=== PATIENT | female | born 1955 | race Caucasian/White ===

== ENCOUNTER 2021-05-31 02:08 | Inpatient (IN) ==
[2021-05-31] MEDS ORDERED: Ipratropium/Albuterol Neb 3 ML IH ONE (02:13)
[2021-05-31] MEDS ORDERED: methylPREDNISolone 125 MG/2 ML VIAL IVP ONE (02:13)
[2021-05-31] MEDS ORDERED: 0.9 % Sodium Chloride 1,000 ML IVC SCH (02:15)
[2021-05-31 02:51] LABS: Basophils % 0.4 %; Eosinophils # 0.2 K/mcL (0.0-0.6); Hematocrit 43.4 % (35.3-44.9); Hemoglobin 13.9 g/dL (11.5-15.4); Immature Granulocytes % 0.5 % (0-4); Lymphocytes # 1.3 K/mcL (0.6-4.6); Lymphocytes % 12.5 %; Mean Corpuscular Hemoglobin 29.3 pg (28.0-33.3); Mean Corpuscular Volume 91.6 fL (83.0-100.0); Mean Platelet Volume 11.4 fL (9.4-12.4); Monocytes # 0.7 K/mcL (0.0-1.3); Monocytes % 6.3 %; Neutrophils # 8.4 K/mcL (1.6-8.9); Platelet Count 206 K/mcL (140-400); Red Blood Count 4.74 M/mcL (3.82-4.97); Red Cell Distribution Width 13.7 % (11.5-14.5); Segmented Neutrophils % 78.3 %; White Blood Count 10.8 K/mcL (4.3-11.1)
[2021-05-31 02:57] LABS: INR 1.1
[2021-05-31 03:00] LABS: Activated Partial Thrombo Time 30.3 Seconds (26.0-36.0)
[2021-05-31 03:07] LABS: Alanine Aminotransferase 41 Units/L (7-52); Albumin 4.2 g/dL (3.5-5.7); Albumin/Globulin Ratio 1.3 (1.1-2.2); Alkaline Phosphatase 92 Units/L (34-104); Aspartate Amino Transferase 46 Units/L (13-39); BUN/Creatinine Ratio 16 (6-26); Bilirubin,Total 0.4 mg/dL (0.3-1.0); Blood Urea Nitrogen 14 mg/dL (8-23); Calcium 9.2 mg/dL (8.6-10.3); Carbon Dioxide 29 mEq/L (23-29); Chloride 106 mEq/L (98-107); Globulin 3.3 g/dL (2.4-3.5); Glucose 146 mg/dL (70-105); Osmolality,Calculated 299 (280-300); Potassium 3.7 mEq/L (3.5-5.1); Sodium 143 mEq/L (136-145); Total Protein 7.5 g/dL (6.4-8.9); eGFR For African Americans > 60 (> 60); eGFR For Non-African Americans > 60 (> 60)
[2021-05-31 03:10] LABS: Bilirubin,Urine Negative (Negative); Blood,Urine Trace-intact (Negative); Clarity,Urine Clear (Clear); Color,Urine Yellow (Yellow); Glucose,Urine (UA) Normal (Normal); Ketones,Urine Negative (Negative); Leukocyte Esterase,Urine Negative (Negative); Nitrite,Urine Negative (Negative); PH,Urine 5.5 pH Units (5.0-8.0); Protein,Urine 100 mg/dL (Neg-Trace); Specific Gravity,Urine >= 1.030 (1.010-1.025); Urobilinogen,Urine Normal (Normal)
[2021-05-31 03:19] LABS: Hyaline Casts,Urine Few per lpf (None Seen); Mucus,Urine Few per lpf (None-Few); Squamous Epithelial Cell,Urine Few per hpf (None-Few); WBC,Urine 0-3 per hpf (0-3)
[2021-05-31 03:20] LABS: Bacteria,Urine Few per hpf (None-Few)
[2021-05-31] MEDS ORDERED: levoFLOXacin 500 MG/100 ML 500 MG/100 ML BAG IVPB ONE ×2 (03:26→04:07)
[2021-05-31] MEDS ORDERED: Ondansetron ODT 4 MG TAB.RAPDIS PO PRN (04:42)
[2021-05-31] MEDS: Ipratropium/Albuterol Neb 3 ML IH SCH ×4 (05:43→21:49)
[2021-05-31] MEDS: Ibuprofen 800 MG TABLET PO PRN ×3 (05:52→22:57)
[2021-05-31] MEDS: 0.9 % Sodium Chloride 1,000 ML IVC SCH ×2 (05:56→14:03)
[2021-05-31] MEDS ORDERED: modafiniL 100 MG TABLET PO SCH (09:00)
[2021-05-31] MEDS: MethylPREDNISolone 40 MG/ML VIAL IVP SCH ×3 (09:13→22:59)
[2021-05-31] MEDS: PARoxetine 10 MG TABLET PO SCH (09:13)
[2021-05-31] MEDS: Gabapentin 400 MG CAPSULE PO SCH ×3 (09:13→22:57)
[2021-05-31] MEDS: lisinopriL 20 MG TABLET PO SCH (09:14)
[2021-05-31] MEDS: hydroCHLOROthiazide 25 MG TABLET PO SCH (09:14)
[2021-05-31] MEDS: cilostazoL 100 MG TABLET PO SCH ×2 (09:14→22:58)
[2021-05-31] MEDS: Vitamin B Complex/Vit C/Vit E 1 EACH TABLET PO SCH (09:14)
[2021-05-31] MEDS: Cholecalciferol (D-3) 1,000 UNIT (25MCG) TABLET PO SCH (09:14)
[2021-05-31] MEDS: Metoprolol XL (24 HR) Succ 50 MG TAB.ER.24H PO SCH (09:14)
[2021-05-31] MEDS: amLODIPine 5 MG TABLET PO SCH (09:14)
[2021-05-31] MEDS: Budesonide/Formoterol 160/4.5 1 PUFF INH IH SCH (09:46)
[2021-05-31] MEDS: GuaiFENesin/Dextromethorphan TABLET PO PRN (14:56)
[2021-05-31] MEDS: Aspirin Enteric Coated 81 MG Tablet PO SCH (22:56)
[2021-05-31] MEDS: Melatonin 3 MG TABLET PO SCH (22:57)
[2021-06-01] MEDS: Ipratropium/Albuterol Neb 3 ML IH SCH ×4 (03:17→21:02)
[2021-06-01] MEDS: MethylPREDNISolone 40 MG/ML VIAL IVP SCH ×4 (04:10→22:17)
[2021-06-01] MEDS: hydroCHLOROthiazide 25 MG TABLET PO SCH (09:28)
[2021-06-01] MEDS: PARoxetine 10 MG TABLET PO SCH (09:29)
[2021-06-01] MEDS: amLODIPine 5 MG TABLET PO SCH (09:29)
[2021-06-01] MEDS: lisinopriL 20 MG TABLET PO SCH (09:29)
[2021-06-01] MEDS: Gabapentin 400 MG CAPSULE PO SCH ×3 (09:30→22:17)
[2021-06-01] MEDS: Metoprolol XL (24 HR) Succ 50 MG TAB.ER.24H PO SCH (09:30)
[2021-06-01] MEDS: Vitamin B Complex/Vit C/Vit E 1 EACH TABLET PO SCH (09:30)
[2021-06-01] MEDS: Cholecalciferol (D-3) 1,000 UNIT (25MCG) TABLET PO SCH (09:30)
[2021-06-01] MEDS: cilostazoL 100 MG TABLET PO SCH ×2 (09:30→22:17)
[2021-06-01] MEDS: Budesonide/Formoterol 160/4.5 1 PUFF INH IH SCH (09:42)
[2021-06-01 09:55] LABS: Hematocrit 44.5 % (35.3-44.9); Hemoglobin 13.8 g/dL (11.5-15.4); Mean Corpuscular Hemoglobin 28.8 pg (28.0-33.3); Mean Corpuscular Volume 92.9 fL (83.0-100.0); Mean Platelet Volume 10.8 fL (9.4-12.4); Platelet Count 211 K/mcL (140-400); Red Blood Count 4.79 M/mcL (3.82-4.97); Red Cell Distribution Width 13.6 % (11.5-14.5); White Blood Count 13.6 K/mcL (4.3-11.1)
[2021-06-01 10:10] LABS: BUN/Creatinine Ratio 25 (6-26); Blood Urea Nitrogen 24 mg/dL (8-23); Calcium 9.4 mg/dL (8.6-10.3); Carbon Dioxide 30 mEq/L (23-29); Chloride 106 mEq/L (98-107); Glucose 159 mg/dL (70-105); Osmolality,Calculated 303 (280-300); Potassium 4.3 mEq/L (3.5-5.1); Sodium 143 mEq/L (136-145); eGFR For African Americans > 60 (> 60); eGFR For Non-African Americans 58 (> 60)
[2021-06-01] MEDS: levoFLOXacin 500 MG/100 ML 500 MG/100 ML BAG IVPB SCH (10:30)
[2021-06-01] MEDS: Ibuprofen 800 MG TABLET PO PRN ×2 (10:30→15:44)
[2021-06-01] MEDS: *HR* Enoxaparin 40 MG/0.4 ML SYRINGE SQ SCH (12:00)
[2021-06-01] MEDS: Aspirin Enteric Coated 81 MG Tablet PO SCH (22:16)
[2021-06-01] MEDS: GuaiFENesin/Dextromethorphan TABLET PO PRN (22:17)
[2021-06-01] MEDS: Melatonin 3 MG TABLET PO SCH (22:17)
[2021-06-02] MEDS ORDERED: Saline Nasal Spray 44 ML BOTTLE NS PRN (03:03)
[2021-06-02] MEDS ORDERED: HYDROcodone BIT/Homatropine LQ 5 MG/5 ML UDC PO ONE (03:14)
[2021-06-02] MEDS: MethylPREDNISolone 40 MG/ML VIAL IVP SCH ×4 (03:32→20:38)
[2021-06-02] MEDS: Ibuprofen 800 MG TABLET PO PRN ×3 (03:33→16:39)
[2021-06-02] MEDS: Ipratropium/Albuterol Neb 3 ML IH SCH ×4 (04:29→22:19)
[2021-06-02] MEDS: *HR* Enoxaparin 40 MG/0.4 ML SYRINGE SQ SCH (05:52)
[2021-06-02 08:22] LABS: Hematocrit 38.1 % (35.3-44.9); Hemoglobin 11.9 g/dL (11.5-15.4); Mean Corpuscular HGB Conc 31.2 g/dL (31.6-35.5); Mean Corpuscular Hemoglobin 29.3 pg (28.0-33.3); Mean Corpuscular Volume 93.8 fL (83.0-100.0); Mean Platelet Volume 11.4 fL (9.4-12.4); Platelet Count 204 K/mcL (140-400); Red Blood Count 4.06 M/mcL (3.82-4.97); Red Cell Distribution Width 13.8 % (11.5-14.5); White Blood Count 12.5 K/mcL (4.3-11.1)
[2021-06-02] MEDS: Cholecalciferol (D-3) 1,000 UNIT (25MCG) TABLET PO SCH (08:27)
[2021-06-02] MEDS: lisinopriL 20 MG TABLET PO SCH (08:27)
[2021-06-02] MEDS: PARoxetine 10 MG TABLET PO SCH (08:27)
[2021-06-02] MEDS: Metoprolol XL (24 HR) Succ 50 MG TAB.ER.24H PO SCH (08:27)
[2021-06-02] MEDS: hydroCHLOROthiazide 25 MG TABLET PO SCH (08:27)
[2021-06-02] MEDS: Gabapentin 400 MG CAPSULE PO SCH ×3 (08:27→20:37)
[2021-06-02] MEDS: amLODIPine 5 MG TABLET PO SCH (08:28)
[2021-06-02] MEDS: Vitamin B Complex/Vit C/Vit E 1 EACH TABLET PO SCH (08:28)
[2021-06-02] MEDS: levoFLOXacin 500 MG/100 ML 500 MG/100 ML BAG IVPB SCH (08:28)
[2021-06-02] MEDS: cilostazoL 100 MG TABLET PO SCH ×2 (08:28→20:38)
[2021-06-02 08:41] LABS: BUN/Creatinine Ratio 31 (6-26); Blood Urea Nitrogen 33 mg/dL (8-23); Carbon Dioxide 31 mEq/L (23-29); Chloride 106 mEq/L (98-107); Glucose 156 mg/dL (70-105); Osmolality,Calculated 306 (280-300); Potassium 4.2 mEq/L (3.5-5.1); Sodium 143 mEq/L (136-145); eGFR For African Americans > 60 (> 60); eGFR For Non-African Americans 52 (> 60)
[2021-06-02] MEDS: GuaiFENesin/Dextromethorphan TABLET PO PRN (08:41)
[2021-06-02] MEDS: Budesonide/Formoterol 160/4.5 1 PUFF INH IH SCH (10:15)
[2021-06-02] MEDS: Melatonin 3 MG TABLET PO SCH (20:38)
[2021-06-02] MEDS: Aspirin Enteric Coated 81 MG Tablet PO SCH (20:38)
[2021-06-03] MEDS: Ipratropium/Albuterol Neb 3 ML IH SCH ×4 (03:35→22:50)
[2021-06-03] MEDS: MethylPREDNISolone 40 MG/ML VIAL IVP SCH ×4 (04:45→20:43)
[2021-06-03] MEDS: *HR* Enoxaparin 40 MG/0.4 ML SYRINGE SQ SCH (04:45)
[2021-06-03] MEDS: lisinopriL 20 MG TABLET PO SCH (08:04)
[2021-06-03] MEDS: Gabapentin 400 MG CAPSULE PO SCH ×3 (08:05→20:44)
[2021-06-03] MEDS: Vitamin B Complex/Vit C/Vit E 1 EACH TABLET PO SCH (08:05)
[2021-06-03] MEDS: hydroCHLOROthiazide 25 MG TABLET PO SCH (08:05)
[2021-06-03] MEDS: cilostazoL 100 MG TABLET PO SCH ×2 (08:05→20:50)
[2021-06-03] MEDS: Metoprolol XL (24 HR) Succ 50 MG TAB.ER.24H PO SCH (08:06)
[2021-06-03] MEDS: amLODIPine 5 MG TABLET PO SCH (08:06)
[2021-06-03] MEDS: PARoxetine 10 MG TABLET PO SCH (08:06)
[2021-06-03] MEDS: Cholecalciferol (D-3) 1,000 UNIT (25MCG) TABLET PO SCH (08:07)
[2021-06-03] MEDS: Budesonide/Formoterol 160/4.5 1 PUFF INH IH SCH ×2 (09:39→22:50)
[2021-06-03] MEDS ORDERED: Loratadine 10 MG TABLET PO PRN (13:40)
[2021-06-03] MEDS ORDERED: modafiniL 100 MG TABLET PO PRN (15:00)
[2021-06-03] MEDS: Benzonatate 100 MG CAPSULE PO PRN (15:16)
[2021-06-03] MEDS: Aspirin Enteric Coated 81 MG Tablet PO SCH (20:44)
[2021-06-03] MEDS: Melatonin 3 MG TABLET PO SCH (20:45)
[2021-06-04] MEDS: Ipratropium/Albuterol Neb 3 ML IH SCH ×3 (04:30→15:08)
[2021-06-04] MEDS: Benzonatate 100 MG CAPSULE PO PRN ×2 (05:00→17:02)
[2021-06-04] MEDS: MethylPREDNISolone 40 MG/ML VIAL IVP SCH ×4 (05:00→22:31)
[2021-06-04] MEDS: *HR* Enoxaparin 40 MG/0.4 ML SYRINGE SQ SCH (05:00)
[2021-06-04 07:28] LABS: Basophils % 0.2 %; Hematocrit 38.2 % (35.3-44.9); Hemoglobin 12.1 g/dL (11.5-15.4); Immature Granulocytes % 0.8 % (0-4); Lymphocytes # 1.1 K/mcL (0.6-4.6); Lymphocytes % 10.3 %; Mean Corpuscular HGB Conc 31.7 g/dL (31.6-35.5); Mean Corpuscular Hemoglobin 29.2 pg (28.0-33.3); Mean Corpuscular Volume 92.3 fL (83.0-100.0); Mean Platelet Volume 10.7 fL (9.4-12.4); Monocytes # 0.5 K/mcL (0.0-1.3); Monocytes % 4.2 %; Neutrophils # 9.3 K/mcL (1.6-8.9); Platelet Count 200 K/mcL (140-400); Red Blood Count 4.14 M/mcL (3.82-4.97); Red Cell Distribution Width 13.5 % (11.5-14.5); Segmented Neutrophils % 84.5 %; White Blood Count 11.1 K/mcL (4.3-11.1)
[2021-06-04 07:46] LABS: BUN/Creatinine Ratio 31 (6-26); Blood Urea Nitrogen 29 mg/dL (8-23); Calcium 8.7 mg/dL (8.6-10.3); Carbon Dioxide 39 mEq/L (23-29); Chloride 99 mEq/L (98-107); Glucose 159 mg/dL (70-105); Osmolality,Calculated 301 (280-300); Potassium 3.9 mEq/L (3.5-5.1); Sodium 141 mEq/L (136-145); eGFR For African Americans > 60 (> 60); eGFR For Non-African Americans 58 (> 60)
[2021-06-04] MEDS: Budesonide/Formoterol 160/4.5 1 PUFF INH IH SCH (09:32)
[2021-06-04] MEDS: Vitamin B Complex/Vit C/Vit E 1 EACH TABLET PO SCH (09:33)
[2021-06-04] MEDS: Gabapentin 400 MG CAPSULE PO SCH ×3 (09:33→22:31)
[2021-06-04] MEDS: lisinopriL 20 MG TABLET PO SCH (09:33)
[2021-06-04] MEDS: hydroCHLOROthiazide 25 MG TABLET PO SCH (09:34)
[2021-06-04] MEDS: Cholecalciferol (D-3) 1,000 UNIT (25MCG) TABLET PO SCH (09:34)
[2021-06-04] MEDS: amLODIPine 5 MG TABLET PO SCH (09:34)
[2021-06-04] MEDS: cilostazoL 100 MG TABLET PO SCH ×2 (09:34→22:31)
[2021-06-04] MEDS: Metoprolol XL (24 HR) Succ 50 MG TAB.ER.24H PO SCH (09:34)
[2021-06-04] MEDS: PARoxetine 10 MG TABLET PO SCH (09:34)
[2021-06-04 13:18] LABS: Adenovirus Not Detected (Not Detect); Bordetella Pertussis Not Detected (Not Detect); Chlamydophila pneumoniae Not Detected (Not Detect); Coronavirus 229E Not Detected (Not Detect); Coronavirus HKU1 Not Detected (Not Detect); Coronavirus NL63 Not Detected (Not Detect); Coronavirus OC43 Not Detected (Not Detect); Human Metapneumovirus Not Detected (Not Detect); Human Rhinovirus/Enterovirus Not Detected (Not Detect); Influenza A Subtype 2009 H1 Not Detected (Not Detect); Influenza B Not Detected (Not Detect); Mycoplasma pneumoniae Not Detected (Not Detect); Parainfluenza Virus 1 Not Detected (Not Detect); Parainfluenza Virus 2 Not Detected (Not Detect); Parainfluenza Virus 3 Not Detected (Not Detect); Parainfluenza Virus 4 Not Detected (Not Detect); Respiratory Syncytial Virus DETECTED (Not Detect); SARS-CoV-2 Not Detected (Not Detect)
[2021-06-04] MEDS: Melatonin 3 MG TABLET PO SCH (22:31)
[2021-06-04] MEDS: Aspirin Enteric Coated 81 MG Tablet PO SCH (22:31)
[2021-06-04] MEDS: Ibuprofen 800 MG TABLET PO PRN (22:39)
[2021-06-05] MEDS: Ipratropium/Albuterol Neb 3 ML IH SCH ×5 (01:23→22:12)
[2021-06-05] MEDS: Budesonide/Formoterol 160/4.5 1 PUFF INH IH SCH ×3 (01:23→22:12)
[2021-06-05] MEDS: *HR* Enoxaparin 40 MG/0.4 ML SYRINGE SQ SCH (06:22)
[2021-06-05] MEDS: MethylPREDNISolone 40 MG/ML VIAL IVP SCH ×4 (06:22→22:09)
[2021-06-05 08:05] LABS: Basophils % 0.2 %; Hematocrit 37.8 % (35.3-44.9); Hemoglobin 12.1 g/dL (11.5-15.4); Immature Granulocytes % 1.1 % (0-4); Lymphocytes # 1.1 K/mcL (0.6-4.6); Lymphocytes % 8.9 %; Mean Corpuscular Hemoglobin 29.4 pg (28.0-33.3); Mean Corpuscular Volume 91.7 fL (83.0-100.0); Mean Platelet Volume 10.8 fL (9.4-12.4); Monocytes # 0.5 K/mcL (0.0-1.3); Monocytes % 3.9 %; Neutrophils # 10.5 K/mcL (1.6-8.9); Platelet Count 212 K/mcL (140-400); Red Blood Count 4.12 M/mcL (3.82-4.97); Red Cell Distribution Width 13.3 % (11.5-14.5); Segmented Neutrophils % 85.9 %; White Blood Count 12.2 K/mcL (4.3-11.1)
[2021-06-05 08:31] LABS: BUN/Creatinine Ratio 37 (6-26); Blood Urea Nitrogen 36 mg/dL (8-23); Calcium 8.6 mg/dL (8.6-10.3); Carbon Dioxide 39 mEq/L (23-29); Chloride 98 mEq/L (98-107); Glucose 166 mg/dL (70-105); Osmolality,Calculated 306 (280-300); Potassium 4.1 mEq/L (3.5-5.1); Sodium 142 mEq/L (136-145); eGFR For African Americans > 60 (> 60); eGFR For Non-African Americans 56 (> 60)
[2021-06-05] MEDS ORDERED: Azithromycin 500 MG in 0.9 % Sodium Chloride 250 ML IVPB SCH (09:00)
[2021-06-05] MEDS: lisinopriL 20 MG TABLET PO SCH (09:18)
[2021-06-05] MEDS: Vitamin B Complex/Vit C/Vit E 1 EACH TABLET PO SCH (09:18)
[2021-06-05] MEDS: amLODIPine 5 MG TABLET PO SCH (09:18)
[2021-06-05] MEDS: Gabapentin 400 MG CAPSULE PO SCH ×3 (09:18→19:58)
[2021-06-05] MEDS: Metoprolol XL (24 HR) Succ 50 MG TAB.ER.24H PO SCH (09:18)
[2021-06-05] MEDS: hydroCHLOROthiazide 25 MG TABLET PO SCH (09:18)
[2021-06-05] MEDS: PARoxetine 10 MG TABLET PO SCH (09:18)
[2021-06-05] MEDS: Cholecalciferol (D-3) 1,000 UNIT (25MCG) TABLET PO SCH (09:19)
[2021-06-05] MEDS: cilostazoL 100 MG TABLET PO SCH ×2 (09:19→19:58)
[2021-06-05] MEDS: Benzonatate 100 MG CAPSULE PO PRN (09:27)
[2021-06-05] MEDS ORDERED: Ketorolac 15 MG/ML VIAL IVP ONE (11:00)
[2021-06-05] MEDS: Melatonin 3 MG TABLET PO SCH (19:58)
[2021-06-05] MEDS: Aspirin Enteric Coated 81 MG Tablet PO SCH (19:58)
[2021-06-06] MEDS: Ipratropium/Albuterol Neb 3 ML IH SCH ×4 (04:00→21:21)
[2021-06-06] MEDS: MethylPREDNISolone 40 MG/ML VIAL IVP SCH ×3 (04:20→16:23)
[2021-06-06] MEDS: *HR* Enoxaparin 40 MG/0.4 ML SYRINGE SQ SCH (04:20)
[2021-06-06 07:41] LABS: Basophils % 0.2 %; Hematocrit 40.9 % (35.3-44.9); Hemoglobin 12.8 g/dL (11.5-15.4); Immature Granulocytes % 1.2 % (0-4); Lymphocytes # 0.8 K/mcL (0.6-4.6); Lymphocytes % 5.8 %; Mean Corpuscular HGB Conc 31.3 g/dL (31.6-35.5); Mean Corpuscular Volume 92.7 fL (83.0-100.0); Mean Platelet Volume 10.8 fL (9.4-12.4); Monocytes # 0.6 K/mcL (0.0-1.3); Monocytes % 4.1 %; Neutrophils # 12.7 K/mcL (1.6-8.9); Platelet Count 225 K/mcL (140-400); Red Blood Count 4.41 M/mcL (3.82-4.97); Red Cell Distribution Width 13.3 % (11.5-14.5); Segmented Neutrophils % 88.7 %; White Blood Count 14.3 K/mcL (4.3-11.1)
[2021-06-06] MEDS: hydroCHLOROthiazide 25 MG TABLET PO SCH (08:04)
[2021-06-06] MEDS: lisinopriL 20 MG TABLET PO SCH (08:05)
[2021-06-06] MEDS: PARoxetine 10 MG TABLET PO SCH (08:05)
[2021-06-06] MEDS: Metoprolol XL (24 HR) Succ 50 MG TAB.ER.24H PO SCH (08:05)
[2021-06-06] MEDS: Cholecalciferol (D-3) 1,000 UNIT (25MCG) TABLET PO SCH (08:05)
[2021-06-06] MEDS: cilostazoL 100 MG TABLET PO SCH ×2 (08:05→20:53)
[2021-06-06] MEDS: Gabapentin 400 MG CAPSULE PO SCH ×3 (08:05→20:52)
[2021-06-06] MEDS: amLODIPine 5 MG TABLET PO SCH (08:05)
[2021-06-06] MEDS: Vitamin B Complex/Vit C/Vit E 1 EACH TABLET PO SCH (08:05)
[2021-06-06 08:10] LABS: BUN/Creatinine Ratio 40 (6-26); Blood Urea Nitrogen 37 mg/dL (8-23); Calcium 8.8 mg/dL (8.6-10.3); Carbon Dioxide 41 mEq/L (23-29); Chloride 97 mEq/L (98-107); Glucose 163 mg/dL (70-105); Osmolality,Calculated 306 (280-300); Sodium 142 mEq/L (136-145); eGFR For African Americans > 60 (> 60); eGFR For Non-African Americans 60 (> 60)
[2021-06-06] MEDS: Benzonatate 100 MG CAPSULE PO PRN ×2 (10:29→20:52)
[2021-06-06] MEDS: Budesonide/Formoterol 160/4.5 1 PUFF INH IH SCH ×2 (10:52→21:21)
[2021-06-06] MEDS ORDERED: Preparation H Ointment 57 GM TUBE TP PRN (17:40)
[2021-06-06] MEDS: Aspirin Enteric Coated 81 MG Tablet PO SCH (20:52)
[2021-06-06] MEDS: Melatonin 3 MG TABLET PO SCH (20:53)
[2021-06-07] MEDS: Ipratropium/Albuterol Neb 3 ML IH SCH ×2 (04:23→10:22)
[2021-06-07] MEDS ORDERED: MethylPREDNISolone 40 MG/ML VIAL IVP SCH (06:00)
[2021-06-07] MEDS: *HR* Enoxaparin 40 MG/0.4 ML SYRINGE SQ SCH (06:23)
[2021-06-07] MEDS: Ibuprofen 800 MG TABLET PO PRN (06:25)
[2021-06-07 06:48] LABS: Basophils % 0.2 %; Hematocrit 41.7 % (35.3-44.9); Hemoglobin 13.4 g/dL (11.5-15.4); Immature Granulocytes % 1.5 % (0-4); Lymphocytes # 1.5 K/mcL (0.6-4.6); Lymphocytes % 8.6 %; Mean Corpuscular HGB Conc 32.1 g/dL (31.6-35.5); Mean Corpuscular Hemoglobin 29.3 pg (28.0-33.3); Mean Corpuscular Volume 91.2 fL (83.0-100.0); Mean Platelet Volume 10.5 fL (9.4-12.4); Monocytes # 0.9 K/mcL (0.0-1.3); Neutrophils # 14.4 K/mcL (1.6-8.9); Platelet Count 235 K/mcL (140-400); Red Blood Count 4.57 M/mcL (3.82-4.97); Red Cell Distribution Width 13.4 % (11.5-14.5); Segmented Neutrophils % 84.7 %
[2021-06-07 07:14] VITALS: BP 111/69; PULSE 77; TEMP 97.6; O2SAT 94
[2021-06-07 07:31] LABS: BUN/Creatinine Ratio 34 (6-26); Blood Urea Nitrogen 30 mg/dL (8-23); Calcium 8.9 mg/dL (8.6-10.3); Carbon Dioxide 38 mEq/L (23-29); Chloride 97 mEq/L (98-107); Glucose 168 mg/dL (70-105); Osmolality,Calculated 304 (280-300); Potassium 4.6 mEq/L (3.5-5.1); Sodium 142 mEq/L (136-145); eGFR For African Americans > 60 (> 60); eGFR For Non-African Americans > 60 (> 60)
[2021-06-07] MEDS: PARoxetine 10 MG TABLET PO SCH (08:29)
[2021-06-07] MEDS: hydroCHLOROthiazide 25 MG TABLET PO SCH (08:29)
[2021-06-07] MEDS: lisinopriL 20 MG TABLET PO SCH (08:29)
[2021-06-07] MEDS: Gabapentin 400 MG CAPSULE PO SCH (08:29)
[2021-06-07] MEDS: Vitamin B Complex/Vit C/Vit E 1 EACH TABLET PO SCH (08:29)
[2021-06-07] MEDS: Cholecalciferol (D-3) 1,000 UNIT (25MCG) TABLET PO SCH (08:29)
[2021-06-07] MEDS: cilostazoL 100 MG TABLET PO SCH (08:30)
[2021-06-07] MEDS: amLODIPine 5 MG TABLET PO SCH (08:30)
[2021-06-07] MEDS: Metoprolol XL (24 HR) Succ 50 MG TAB.ER.24H PO SCH (08:30)
[2021-06-07] MEDS: Benzonatate 100 MG CAPSULE PO PRN (08:30)
[2021-06-07] MEDS: Budesonide/Formoterol 160/4.5 1 PUFF INH IH SCH (10:23)
[2021-06-07 15:15] VITALS: RESP 20
== END 2021-06-07 10:50 | disposition home or self-care (01) | DRG 190 ==
LOC: EMEROOPIK 02:08 → INPPIK 02:08
PROVIDERS: ADMIT Internal Medicine; ATTEND Family Medicine